=== PATIENT | male | born 1955 | race Caucasian/White ===

== ENCOUNTER 2017-04-08 08:59 | Emergency (ER) | payer SELFPAY ==
[2017-04-08 09:28] VITALS: BP 163/97; PULSE 96; RESP 24; TEMP 98.4; O2SAT 100
[2017-04-08] MEDS ORDERED: LORAZEPAM 0.5 MG TAB PO ONE (09:47)
[2017-04-08] MEDS ORDERED: LORAZEPAM 0.5 MG TAB ONE (09:50)
== END 2017-04-08 10:26 | disposition home or self-care (01) | DRG 880 ==
LOC: ED 08:59
DX: F41.0 Panic disorder [episodic paroxysmal anxiety] (principal)
CPT/HCPCS: 71046; 82272; 99282; 99283; A9270-GY